=== PATIENT | male | born 1975 | race Caucasian/White ===

== ENCOUNTER → 2019-12-27 19:44 | Outpatient (CLI) | payer OTHER, SELFPAY ==
--- NOTE | 2019-12-27 19:47 | DI.MRI.S_ITS ---
PROCEDURE: MR LUMBAR SPINE WO CON INDICATIONS: LOW BACK PAIN TECHNIQUE: Noncontrast sagittal T1 spin echo and T2 fast echo, sagittal STIR, axial T1 and T2 fast spin echo through the lumbar spine. In cases with scoliosis, additional coronal T2 fast spin echo may be performed. COMPARISON: None. FINDINGS: Image quality: Degraded by motion artifact Alignment and Curvature: Straightening of the normal lordotic curvature. Bone Marrow: Marrow is of normal overall signal. Scattered chronic appearing Schmorl's nodes. Disc height loss at L4-L5 and L5-S1 No acute vertebral body compression fractures. Spinal Cord: Conus medullaris terminates at the L1 level. Visualized cord demonstrates normal signal and size. Paraspinous Soft Tissues: No paravertebral masses. L1-L2: Normal appearance. L2-L3: Normal appearance. L3-L4: Normal appearance. L4-L5: Posterior annular fissure large central disc protrusion, with associated moderate to severe central canal narrowing. Partial effacement of both lateral recesses with bilaterally symmetric appearance. Minimal right foraminal stenosis. No definite left foraminal narrowing L5-S1: Posterior annular fissure and central disc protrusion. Associated mild central canal narrowing. Lateral recesses appear grossly patent although not well-seen due to motion artifact. Mild bilateral foraminal stenoses IMPRESSION: Lower lumbar discogenic changes and moderate to severe L4-L5 and L5-S1 central canal narrowing. No definite high-grade foraminal stenosis Motion degraded examination Dictated by: Yannick Arrieta M.D. on 12/28/2019 at 9:08 Approved by: Yannick Arrieta M.D. on 12/28/2019 at 9:20
== END ==
PROVIDERS: Referring Provider Orthopaedic Surgery; Visit Provider Orthopaedic Surgery
DX: M54.5 Low back pain (principal); M51.36 Other intervertebral disc degeneration, lumbar region; M48.061 Spinal stenosis, lumbar region without neurogenic claudication; M48.07 Spinal stenosis, lumbosacral region
CPT/HCPCS: 72148